=== PATIENT | female | born 1995 | race Caucasian/White ===

== ENCOUNTER 2017-11-25 16:42 | Emergency (ER) | payer SELFPAY ==
[2017-11-25 17:24] VITALS: BMI 34.1
[2017-11-25 18:24] LABS: SQUAMOUS EPITHIAL 17 /hpf (0-5); URINE BACTERIA RARE (<OCC); URINE BILIRUBIN NEGATIVE (NEGATIVE); URINE BLOOD NEGATIVE (NEGATIVE); URINE CLARITY CLOUDY (Clear); URINE COLOR YELLOW (YELLOW); URINE GLUCOSE (UA) NEG (Normal); URINE LEUKOCYTE ESTERASE SMALL Leu/uL (Negative); URINE PROTEIN NEGATIVE (NEGATIVE); URINE UROBILINOGEN 0.2-1.0 mg/dL (0.2-1.0)
--- NOTE | 2017-11-25 19:12 | OBHP ---
Datetime: 11/25/2017 17:25 IP Adm Impression: , intrauterine IP Admit Plan: Observation/Evaluation Admit Comment, IP Provider: 22 yo with IUP @ 32.2 week (based on SADE of 01/18/18) was sent from [facility] for decreased movement for two days. Denies vaginal bleeding, contractions and loss of fluid. She reports mild dysuria. Denies shortness of breath, chest pain, headache, blurry vision, Nausea, and vomiting. ROS: 12 point system reviewed and negative except for above. OBhx: Follows at [place]. Last visit was today and last u/s was 11/07/17. Next visit is Saturday . PMH: Denies Social history: Denies smoking history, alcohol use or illicit drug use. Fam Hx: Maternal grandmother and grandfather with DM2 Allergies: Denies Surgical history: Denies Medications: PNV Labs: Unknown Physical exam: Patient is in minor discomfort. No acute distress. Heart: S1 and S2. No murmurs, gallops or rubs. Lungs: Clear air entry bilaterally. Abdomen: Gravid, Soft, tender upper abdomen on palpation; No CVA tenderness on exam. Vaginal exam: Not performed FHT: 150 baseline; Moderate variability; Accelerations present in a 20 min strip. No decelerations . No contractions. Category 1 strip. Assessment: 22 yo with IUP @ 32.2 week (based on SADE of 01/18/18) was sent from [facility] for decreased movement. Plan: - Reactive FHT in 20 minute period. - Labor precautions given to the patient. - F/U urinalysis - Patient counseled on Kick counts at home- 10 kick counts in two hours. Discussed with Dr. Persaud ---Roxana Mendoza, PGY-1 Family Medicine Addendum by Dr. Persaud: I have evaluated the patient independently and I agree with the above. Pelvic Type - PN: Adequate Extremities - PN: Normal Abdomen - PN: Normal Back - PN: Normal Breast - PN: Not Done Lungs - PN: Normal Heart - PN: Normal Thyroid - PN: Not Done Neurologic - PN: Not Done HEENT - PN: Not Done General - PN: Normal FHR - Baseline A Provider: 150 EGA AdmitDate IP: 32.2 Vital Signs Provider: Reviewed; Within Normal Limits IP Chief Complaint: Decreased movement; Maternal discomfort NICHD Variability Prov Fetus A: Moderate 6-25bpm NICHD Accel Fetus A IP Provider: [id number] FHR Category Provider Fetus A: Category I NICHD Decel Fetus A IP Provider: None Genitourinary Exam: Normal DTRs - PN: Not Done
--- NOTE | 2017-11-25 19:14 | OBDCSUM ---
Datetime: 11/25/2017 18:34 Discharged to, Provider: Home Follow up at, Provider: [place] Disch Instr Activity: Normal activity Disch Instr Diet: Regular Discharge Time: 11/25/2017 18:35 Follow up in weeks, Provider: as per appt Discharge Diagnosis Prov Other: decreased movement
[2017-11-25 22:49] VITALS: BP 120/70; PULSE 105; O2SAT 100
== END 2017-11-25 18:47 | disposition home or self-care (01) ==
LOC: H.EROB2 16:42
DX: O36.8130 Decreased fetal movements, third trimester, not applicable or unspecified (principal); Z3A.32 32 weeks gestation of pregnancy

== ENCOUNTER 2018-01-18 19:45 | Emergency (ER) | payer MEDICAID, OTHER ==
[2018-01-18 20:04] VITALS: BMI 32.5
[2018-01-18] MEDS ORDERED: Lactated Ringer's 1,000 ML IV SCH (20:30)
[2018-01-18 21:34] LABS: BASO % 0.4 % (0.0-2.0); EOS # 0.1 K/uL (0.0-0.7); EOS % 1.2 % (0.0-4.0); HEMOGLOBIN 10.1 g/dL (12.0-16.0); LYMPH # 1.8 K/uL (1.0-4.3); LYMPH % 25.6 % (20.0-40.0); MEAN CELL VOLUME 73.4 fl (81.0-99.0); MEAN CORPUSCULAR HEMOGLOBIN 23.9 pg (27.0-31.0); MEAN CORPUSCULAR HGB CONC 32.6 g/dL (33.0-37.0); MEAN PLATELET VOLUME 8.1 fl (7.2-11.7); MONO # 0.6 K/uL (0.0-0.8); MONO % 7.9 % (0.0-10.0); NEUT # 4.5 K/uL (1.8-7.0); NEUT % 64.9 % (50.0-75.0); NRBC % 0.1 % (0.0-0.0); RBC 4.22 Mil/uL (3.80-5.20); RED CELL DISTRIBUTION WIDTH 18.7 % (11.5-14.5)
[2018-01-18 21:37] LABS: SQUAMOUS EPITHIAL 15 /hpf (0-5); URINE BACTERIA RARE (<OCC); URINE BILIRUBIN NEGATIVE (NEGATIVE); URINE BLOOD NEGATIVE (NEGATIVE); URINE CLARITY CLOUDY (Clear); URINE COLOR YELLOW (YELLOW); URINE GLUCOSE (UA) NEG (Normal); URINE LEUKOCYTE ESTERASE TRACE Leu/uL (Negative); URINE PROTEIN NEGATIVE (NEGATIVE); URINE UROBILINOGEN 0.2-1.0 mg/dL (0.2-1.0)
[2018-01-18 21:45] LABS: ALBUMIN 3.4 g/dL (3.5-5.0); ALT/SGPT 20 U/L (9-52); AMYLASE 115 U/L (30-110); AST/SGOT 15 U/L (14-36); BLOOD UREA NITROGEN 12 mg/dl (7-17); CALCIUM 9.7 mg/dL (8.4-10.2); GFR NON-AFRICAN AMERICAN > 60; LIPASE 75 U/L (23-300)
[2018-01-19 03:48] VITALS: BP 135/82; PULSE 86; O2SAT 100
[2018-01-19 13:28] VITALS: RESP 18; TEMP 98.1
== END 2018-01-18 22:15 | disposition home or self-care (01) ==
LOC: H.EROB2 19:45
DX: O47.1 False labor at or after 37 completed weeks of gestation (principal); O26.93 Pregnancy related conditions, unspecified, third trimester; R11.0 Nausea; O48.0 Post-term pregnancy; Z3A.40 40 weeks gestation of pregnancy
CPT/HCPCS: 80053; 81003; 82150; 83690; 85025; 96360; 99283; J7120